=== PATIENT | male | born 1975 | race Caucasian/White ===

== ENCOUNTER 2018-11-15 23:40 | Inpatient (IN) | payer OTHER ==
[~2018-11-15] VITALS: Ht 167.6 cm; Wt 41.3 kg
[2018-11-15 23:45] VITALS: BP 95/64
--- NOTE | 2018-11-15 23:57 | NUR ---
BIBA TO ER BED 8 BLS
--- NOTE | 2018-11-16 00:02 | NUR ---
PT TO ED WITH C/O ABD PAIN AND DIARRHEA. PT REPORTS RECENT DIAGNOSIS OF CDIFF. PT BEING TREATED AT [place]. BOWEL SOUNDS HYPERACTIVE TO ALL QUADRANTS. PT IS IN NO OBVIOUS DISTRESS AT THIS TIME.
[2018-11-16] MEDS ORDERED: NACL 0.9% 1,000 ML IV SCH ×2 (00:24→02:09)
[2018-11-16 00:57] LABS: HEMATOCRIT 35.8 % (36-52); HEMOGLOBIN 11.3 g/dL (12.0-18.0); MEAN CORPUSCULAR HEMOGLOBIN 28 pg (27-31); MEAN CORPUSCULAR HGB CONC 32 g/dL (33-37); MEAN CORPUSCULAR VOLUME 89.8 fL (80-94); PLATELET COUNT (AUTO) 203 K/uL (140-450); RED BLOOD CELL COUNT(AUTO) 3.99 MIL/uL (4.20-6.10); RED CELL DISTRIBUTION WIDTH 15.6 % (11.6-13.7)
[2018-11-16 01:12] LABS: ALBUMIN 3.2 g/dL (3.4-5.0); ANION GAP 11.1 (8-16); CARBON DIOXIDE 28.8 mmol/L (21-32); CREATININE 0.2 mg/dL (0.7-1.3); POTASSIUM 3.9 mmol/L (3.5-5.1); TOTAL BILIRUBIN 0.6 mg/dL (0.0-1.0)
[2018-11-16 01:20] LABS: PROTHROMBIN TIME 11.6 secs (10.8-13.4)
[2018-11-16 01:33] LABS: LYMPHOCYTES % (MANUAL) 3 % (20-46); MONOCYTES % (MANUAL) 12 % (5-12); WHITE BLOOD COUNT (AUTO) 16.9 K/uL (4.8-10.8)
--- NOTE | 2018-11-16 01:51 | NUR ---
ASSISTED PT TO BEDPAN FOR STOOL COLLLECTION. UNABLE TO PROVIDE AT THIS TIME. WILL CONTINUE TO TRY. ALL QUESTIONS ANSWERED AT THIS TIME.
[2018-11-16] MEDS ORDERED: DOCUSATE SODIUM 100 MG GELCAP PO PRN (02:10)
[2018-11-16] MEDS ORDERED: metroNIDAZOLE 500 MG/NS PREMIX 100 ML IV ONE (02:10)
[2018-11-16] MEDS ORDERED: HYDROcodone/APAP 5/325 MG 1 TAB TAB PO PRN (02:10)
[2018-11-16] MEDS ORDERED: MORPHINE SULFATE 4 MG/ML SYR IVP ONE (02:10)
[2018-11-16] MEDS ORDERED: MORPHINE SULFATE 2 MG/ML SYR IVP PRN (02:10)
[2018-11-16] MEDS ORDERED: ACETAMINOPHEN 325 MG TAB PO PRN (02:10)
[2018-11-16 02:40] LABS: MAGNESIUM 1.9 mg/dL (1.8-2.4); PHOSPHORUS 3.4 mg/dL (2.5-4.9); THYROID STIMULATING HORMONE 1.67 uIU/mL (0.34-3.74)
[2018-11-16] MEDS ORDERED: LISI2.5T5 PO (02:41)
[2018-11-16] MEDS ORDERED: METO50TE2 PO (02:41)
[2018-11-16] MEDS ORDERED: AMIO200T5 PO (02:41)
[2018-11-16] MEDS ORDERED: APIX5TAB PO (02:41)
[2018-11-16] MEDS ORDERED: METO25TE2 PO (02:41)
--- NOTE | 2018-11-16 03:00 | NUR ---
PT ARRIVED TO UNIT VIA WHEELCHAIR WITH FAMILY/CAREGIVERS. REPORT GIVEN BY ER NURSE AASHISH-RN AT BEDSIDE. PT RESTING IN BED, UNABLE TO AMBULATE- USES POWER WHEELCHAIR AT HOME, AOX4, ON ROOM AIR WITH LEFT FA #20G RUNNING FLAGYL. DISCUSSED PLAN OF CARE AND PT VERBALIZED UNDERSTANDING. NO S/S OF RESPIRATORY DISTRESS OR DISCOMFORT NOTED AT THIS TIME. BED IN LOWEST POSITION, BED BREAKS ON, BOTH SIDE RAILS UP AND FALL PRECAUTIONS IN PLACE. WILL CONTINUE TO MONITOR.
--- NOTE | 2018-11-16 03:15 | NUR ---
Patient will be admitted to care of DR BROCK. Admited to [facility]. Will go to room 117. Belongings list completed. Report to ROSA SANDOVAL.
[2018-11-16] MEDS ORDERED: DEXT 5% / NACL 0.45% 1,000 ML IV SCH (03:50)
[2018-11-16 04:00] VITALS: BP 95/63
--- NOTE | 2018-11-16 04:00 | NUR ---
VITAL SIGNS TAKEN AND TOLERATED WELL. MRSA SWAB COLLECTED. NO S/S OF RESPIRATORY DISTRESS OR DISCOMFORT NOTED AT THIS TIME. WILL CONTINUE TO MONITOR.
--- NOTE | 2018-11-16 06:00 | NUR ---
PT RESTING IN BED. NO S/S OF RESPIRATORY DISTRESS OR DISCOMFORT NOTED AT THIS TIME. WILL CONTINUE TO MONITOR.
--- NOTE | 2018-11-16 07:34 | NUR ---
ENDORSED PT CARE TO DAY SHIFT NURSE ROSARIO FOR CONTINUITY OF CARE.
--- NOTE | 2018-11-16 07:36 | NUR ---
RECEIVED BEDSIDE REPORT FROM ENDOSCOPY NURSE NURSE. PT IS AOX4. DENIES PAIN. NO SIGN OF DISTRESS NOTED. RA. RESPIRATION IS EVEN AND UNLABORED. IV ON L FA 20G, ASYMPTOMATIC AND PATENT, INFUSING PER MD ORDER. IV SITE IS CLEAN AND DRY. SKIN INTACT, CLEAN AND DRY. PT IS UNABLE TO AMBULATE, BEDREST. DISCUSS PLAN OF CARE WITH PATIENT AND FAMILY, BOTH PT AND FAMILY VERBALIZED UNDERSTANDING. CONTACT PRECAUTION IN PLACE. FALL PRECAUTION IN PLACE. SIGNS POSTED. SAFETY MEASURES IN PLACE. BED IN LOW POSITION, CALL LIGHT WITHIN REACH.
[2018-11-16 08:00] VITALS: BP 95/64
--- NOTE | 2018-11-16 08:26 | NUR ---
PATIENT HAS BEEN SCREENED AND CATEGORIZED HIGH NUTRITION RISK. PATIENT WILL BE SEEN WITHIN 1-2 DAYS OF ADMISSION. 11/16/18-11/17/[address]
--- NOTE | 2018-11-16 08:50 | NUR ---
COLLECTED STOOL SPECIMEN AND DROPPED IT OFF TO LAB WITH C-DIFF FORM COMPLETED
[2018-11-16] MEDS: METOPROLOL SUCCINATE 50 MG TABER PO SCH (09:00)
[2018-11-16] MEDS: LISINOPRIL 5 MG TAB PO SCH (09:06)
[2018-11-16] MEDS: APIXABAN 2.5 MG TAB PO SCH ×2 (09:09→20:58)
[2018-11-16] MEDS: AMIODARONE 200 MG TAB PO SCH (09:13)
[2018-11-16] MEDS: NACL 0.9% 1,000 ML IV SCH ×2 (09:15→18:18)
--- NOTE | 2018-11-16 09:17 | NUR ---
ADMINISTERED MEDS PER MD ORDER. HELD BP MED METOPROLOL PER MD ORDER DUE TO B/P 95/64. PT TOLERATED WELL. NO SIGNS OF DISTRESS NOTED. SISTER IN LAW IS AT BEDSIDE.
--- NOTE | 2018-11-16 10:45 | NUR ---
PICKED UP A FOOD PLATE FROM [facility] AND DELIVERED TO PT'S ROOM.
[2018-11-16] MEDS: metroNIDAZOLE 500 MG/NS PREMIX 100 ML IV SCH ×3 (11:22→20:57)
[2018-11-16 12:00] VITALS: BP 105/73
[2018-11-16] MEDS ORDERED: VANCOMYCIN 500 MG VIAL PO SCH (12:00)
[2018-11-16] MEDS: PHARMACY COMMENTS MC SCH ×3 (12:00→23:15)
--- NOTE | 2018-11-16 12:18 | NUR ---
PT IS EATING LUNCH ON BED. [place] PAIN. NO SIGNS OF DISTRESS NOTED. FAMILY IS AT BEDSIDE. SAFETY MEASURES IN PLACE.
[2018-11-16] MEDS: VANCOMYCIN 500 MG VIAL PO SCH ×3 (14:16→23:14)
--- NOTE | 2018-11-16 15:20 | NUR ---
PT IS RESTING ON BED. DENIES PAIN. NO SIGN OF DISTRESS NOTED. SISTER IN LAW ROBINSON IS AT BEDSIDE.
[2018-11-16 16:00] VITALS: BP 99/71
--- NOTE | 2018-11-16 18:15 | NUR ---
NOTIFIED THAT PT IS HAVING HIS 12 EPISODES OF DIARRHEA FOR TODAY. PER , HE WILL ORDER LOMOTIL.
[2018-11-16] MEDS ORDERED: DIPHENOXYLATE /ATROPINE 2.5 MG TAB PO PRN (18:35)
--- NOTE | 2018-11-16 19:10 | NUR ---
GAVE BEDSIDE REPORT TO ENVIRONMENTAL REMEDIATION CONSULTANT NURSE FOR CONTINUITY OF CARE. PT IS IN STABLE CONDITION.
--- NOTE | 2018-11-16 19:11 | NUR ---
REPORT RECEIVED FROM AM NURSE AT BEDSIDE. PT IN STABLE CONDITION. AAOX4. INTRODUCED SELF TO PT. BOARD UPDATED. NO COMPLAINTS OF PAIN. NO SOB. SMALL GRADE FEVER OF 99.3. PT HAS PACEMAKER SET AT 70BPM. IV SITE L FA 20G RUNNING NS@120ML/HR PATENT AND INTACT. SKIN WARM, DRY, AND INTACT WITH NO OPEN WOUNDS. BED LOCKED IN LOW POSITION. CALL CORTÉS WITHIN REACH. SAFETY PRECAUTIONS IN PLACE. ALL NEEDS MET AT THIS TIME.
--- NOTE | 2018-11-16 19:39 | NUR ---
LOMOTIL GIVEN PO FOR DIARRHEA. PT TOLERATED WELL.
[2018-11-16 20:00] VITALS: BP 100/63
--- NOTE | 2018-11-16 20:57 | NUR ---
ELIQUIS GIVEN PO. FLAGYL HUNG AND RUNNING. PT TOLERATING WELL.
--- NOTE | 2018-11-16 23:14 | NUR ---
VANCO GIVEN PO. PT TOLERATED WELL.
[2018-11-17] VITALS: BP 131/80
[2018-11-17] MEDS: NACL 0.9% 1,000 ML IV SCH ×3 (00:35→22:40)
--- NOTE | 2018-11-17 01:30 | NUR ---
PT SLEEPING COMFORTABLY WITH FAMILY AT BEDSIDE. NO S/S OF DISTRESS NOTED. WILL CONTINUE TO MONITOR.
--- NOTE | 2018-11-17 03:00 | NUR ---
PT SLEEPING COMFORTABLY BUT AROUSABLE WITH FAMILY AT BEDSIDE. NO S/S OF DISTRESS NOTED. WILL CONTINUE TO MONITOR.
[2018-11-17 04:00] VITALS: BP 117/70
[2018-11-17] MEDS: metroNIDAZOLE 500 MG/NS PREMIX 100 ML IV SCH ×3 (05:23→21:11)
--- NOTE | 2018-11-17 05:23 | NUR ---
SAMMY BLANDON AND RUNNING. GELLER GIVEN PO. PT TOLERATED WELL.
[2018-11-17] MEDS: PHARMACY COMMENTS MC SCH ×3 (05:24→18:31)
[2018-11-17] MEDS: VANCOMYCIN 500 MG VIAL PO SCH ×3 (05:24→18:40)
[2018-11-17] MEDS: ONDANSETRON 4 MG/2 ML VIAL IM/IVP PRN (05:28)
--- NOTE | 2018-11-17 05:28 | NUR ---
PT HAS COMPLAINTS OF NAUSEA/VOMITING. ZOFRAN GIVEN IVP. PT TOLERATED WELL.
[2018-11-17 06:36] LABS: BASOPHILS % (AUTO) 0.4 % (0.0-2.0); EOSINOPHILS % (AUTO) 0.6 % (0.0-4.0); HEMATOCRIT 32.2 % (36-52); HEMOGLOBIN 10.2 g/dL (12.0-18.0); LYMPHOCYTES # (AUTO) 0.9 K/uL (2.0-11.5); LYMPHOCYTES % (AUTO) 13.9 % (20.5-51.1); MEAN CORPUSCULAR HEMOGLOBIN 29 pg (27-31); MEAN CORPUSCULAR HGB CONC 32 g/dL (33-37); MEAN CORPUSCULAR VOLUME 91.4 fL (80-94); MONOCYTES # (AUTO) 0.8 K/uL (0.8-1.0); MONOCYTES % (AUTO) 12.2 % (1.7-9.3); NEUTROPHILS # (AUTO) 4.8 K/uL (1.8-7.7); NEUTROPHILS % (AUTO) 72.9 % (42.2-75.2); PLATELET COUNT (AUTO) 167 K/uL (140-450); RED BLOOD CELL COUNT(AUTO) 3.53 MIL/uL (4.20-6.10); RED CELL DISTRIBUTION WIDTH 15.7 % (11.6-13.7); WHITE BLOOD COUNT (AUTO) 6.6 K/uL (4.8-10.8)
[2018-11-17 07:08] LABS: CARBON DIOXIDE 24.3 mmol/L (21-32); CREATININE 0.3 mg/dL (0.7-1.3); POTASSIUM 3.3 mmol/L (3.5-5.1)
[2018-11-17 07:15] LABS: MAGNESIUM 1.6 mg/dL (1.8-2.4); PHOSPHORUS 3.5 mg/dL (2.5-4.9)
--- NOTE | 2018-11-17 07:25 | NUR ---
REPORT GIVEN TO AM NURSE AT BEDSIDE. PT IN STABLE CONDITION.
--- NOTE | 2018-11-17 07:30 | NUR ---
RECEIVED PT FROM WASTE HAND NURSE, PT IS AWAKE WITH SISTER IN LAW ON THE BEDSIDE, SIDE RAILS ARE UP AND CALL LIGHT WITHIN REACH, FALL AND SAFETY PRECAUTION IN PLACE. PT HAS AN IV LINE ON THE LEFT FA G. 20 WITH NS AT 120 ML/HR INFUSING. PT DENIES PAIN AND NO SOB NOTED. WILL MONITOR PT.
[2018-11-17 08:00] VITALS: BP 114/77
[2018-11-17 08:43] LABS: T4 (THYROXINE) 9.2 ug/dL (4.5-12.0)
[2018-11-17] MEDS ORDERED: MAG SULF 2000 MG/WATER PREMIX 100 ML IV SCH (09:00)
[2018-11-17] MEDS: METOPROLOL SUCCINATE 50 MG TABER PO SCH (09:00)
[2018-11-17] MEDS ORDERED: POTASSIUM CHLORIDE 10 MEQ TABER PO SCH (09:00)
[2018-11-17] MEDS: LISINOPRIL 5 MG TAB PO SCH (09:04)
[2018-11-17] MEDS: AMIODARONE 200 MG TAB PO SCH (09:04)
--- NOTE | 2018-11-17 09:05 | NUR ---
PT IS AWAKE AND SEATED ON THE BED, VITAL SIGNS CHECKED PRIOR TO MEDICATION ADMINISTRATION, PT REFUSED TO TAKE THE METOPROLOL VERBALIZED THAT HE USED TO TAKE THE METOPROLOL AT NIGHT, DR. WADDELL MADE AWARE. NO SIGN OF DISTRESS NOTED AND WILL MONITOR PT.
[2018-11-17] MEDS: APIXABAN 2.5 MG TAB PO SCH ×2 (09:07→21:19)
--- NOTE | 2018-11-17 09:17 | NUR ---
PT IS SEATED UP ON THE BED, EATING HIS BREAKFAST,BEING ASSISTED BY SISTER IN LAW, EDMOND, MAGNESIUM IVPB AND POTASSIUM TABLETS WERE GIVEN AND PT TOLERATED IT, NO SIGN OF DISTRESS NOTED AND WILL MONITOR PT.
[2018-11-17 12:00] VITALS: BP 107/75
--- NOTE | 2018-11-17 12:39 | NUR ---
PT IS AWAKE AND MEDICATION WA GIVEN VIA IVPB. NO SIGN OF DISTRESS NOTED AND WILL MONITOR PT.
[2018-11-17] MEDS ORDERED: ALBUTEROL SULFATE/IPRATROPIU 3 ML SOL IH PRN (13:30)
--- NOTE | 2018-11-17 13:39 | NUR ---
11/17/18 RD INITIAL ASSESSMENT COMPLETED PLEASE REFER TO NUTRITION ASSESSMENT UNDER CARE ACTIVITY FOR ESTIMATED NUTRITIONAL NEEDS. 1. CONTINUE BRAT DIET TOLERATED 2. IF/WHEN PATIENT BECOMES MEDICALLY STABLE CONSIDER ADVANCED TO REGULAR DIET 3. RD TO FOLLOW-UP 3-5 DAYS, MODERATE RISK SAMANTHA MARTE, RD
--- NOTE | 2018-11-17 15:10 | NUR ---
9494 MET WITH PATIENTS BROTHTYRELL DIEZ AND HE VOICED HIS CONCERNS REGARDING SOME NURSING CARE ISSUES AND HAS REQUESTED THAT PATIENT BE TRANSFERRED TO [facility]. I ATTEMPTED TO EXPLAIN TO HIM THAT [facility] WILL NOT ACCEPT PATIENTS FOR FAMILY REQUEST AND IS ONLY FOR HIGHER LEVEL OF CARE. BROTHER INSISTED THAT [facility] BE CONTACTED FOR TRANSFER AND THAT THEY BE INFORMED THAT ITS BECAUSE PATIENT IN HIS OPINION IS NOT RECEIVING GOOD CARE. I OFFERED TO HAVE HIM SPEAK TO NURSING ADMINISTRATION AND HE BECAME ANGRY AND ACCUSING THIS STORYBOARD ARTIST OF NOT WANTING TO ADVOCATE FOR PATIENT. I INFORMED HIM THAT THE TRANSFER UNIT WILL BE CONTACTED AND ASKED IF HE HAD A BACK UP PLAN IF PATIENT IS NOT ACCEPTED TO [place] AND HE AGAIN BECAME AGITATED AND ACCUSATORY. I DID EXPLAIN TO HIM THAT IT WAS AN [employer] VIOLATION TO TRANSFER A PATIENT WITHOUT THE OTHER FACILITIES ACCEPTANCE PATIENT HAD SAID HE WOULD CALL AN AMBULANCE AND HAVE PATIENT TRANSFERRED.
[2018-11-17 16:00] VITALS: BP 106/72
[2018-11-17] MEDS ORDERED: SIMETHICONE 40 MG/0.6 ML PO PRN (17:30)
--- NOTE | 2018-11-17 17:33 | NUR ---
I CALLED [facility] AND SPOKE TO LESLIE . SHE SAID IT NEEDS TO RE-FAX AGAIN TO .
[2018-11-17] MEDS ORDERED: SIMETHICONE 80 MG TAB.CHEW PO PRN (18:00)
--- NOTE | 2018-11-17 18:51 | NUR ---
WALESKA FROM [facility] CALLED AND ASKING DR BROCK NUMBER JUST IN CASE THEY HAVE QUESTION. SHE SAID THEY WILL REVIEW THE CASE AND SHE WILL CALL US BACK. NOTIFIED DR. BROCK AND DR. AMADOR AND MADE AWARE.
--- NOTE | 2018-11-17 19:15 | NUR ---
OPTIFOAM DRESSING WAS APPLIED TO THE SACROCOCCYGEAL AREA OF THE PT FOR BARRIER.
--- NOTE | 2018-11-17 19:20 | NUR ---
ENDORSED PT TO INTELLIGENCE OPERATIONS SPECIALIST NURSEJAIME FOR CONTINUITY OF CARE, PT IS STABLE AT THIS TIME WITH BROTHER ON THE BED SIDE.
--- NOTE | 2018-11-17 19:21 | NUR ---
RECEIVED REPORT FROM DAY SHIFT NURSE CHRISTOPHER-RN AT BEDSIDE. PT RESTING IN BED WITH FAMILY AT BEDSIDE, UNABLE TO AMBULATE- USES POWER WHEELCHAIR AT HOME, AOX4, ON ROOM AIR WITH LEFT FA #20G. DISCUSSED PLAN OF CARE AND PT VERBALIZED UNDERSTANDING. NO S/S OF RESPIRATORY DISTRESS OR DISCOMFORT NOTED AT THIS TIME. BED IN LOWEST POSITION, BED BREAKS ON, BOTH SIDE RAILS UP, BOTH CONTACT AND FALL PRECAUTIONS ARE IN PLACE. WILL CONTINUE TO MONITOR.
[2018-11-17 20:00] VITALS: BP 92/53
--- NOTE | 2018-11-17 20:00 | NUR ---
VITAL SIGNS TAKEN AND TOLERATED WELL. PT STATED HE TAKES TOPROL XL 75MG AT NIGHT AND WOULD LIKE THAT MEDICATION TO BE GIVEN AT 2100 INSTEAD OF THE AM. SPOKE WITH DR. CHEATHAM AND SAID SHE WOULD CHANGE THE TIME OF DOSAGE. PT ALSO C/O ARMS SWELLING DUE TO IVF- SPOKE WITH DR. CHEATHAM AND SHE CHANGED THE ORDER TO BE RUNING AT 10ML/HR. NO S/S OF RESPIRATORY DISTRESS OR DISCOMFORT NOTED AT THIS TIME. WILL CONTINUE TO MONITOR.
[2018-11-17] MEDS ORDERED: METOPROLOL SUCCINATE 50 MG TABER PO SCH (21:00)
--- NOTE | 2018-11-17 21:19 | NUR ---
SCHEDULED MEDICATIONS GIVEN AND TOLERATED WELL. NO S/S OF RESPIRATORY DISTRESS OR DISCOMFORT NOTED AT THIS TIME. WILL CONTINUE TO MONITOR.
--- NOTE | 2018-11-17 22:00 | NUR ---
PT RESTING IN BED. NO S/S OF RESPIRATORY DISTRESS OR DISCOMFORT NOTED AT THIS TIME. WILL CONTINUE TO MONITOR.
[2018-11-18] VITALS: BP 109/72
[2018-11-18] MEDS: VANCOMYCIN 500 MG VIAL PO SCH ×4 (00:06→17:40)
--- NOTE | 2018-11-18 00:06 | NUR ---
VITAL SIGNS TAKEN AND TOLERATED WELL. SCHEDULED MEDICATION GIVEN AND TOLERATED WELL. PT C/O ABD DISTENTION, SOB AND APNEA WITH CPAP MACHINE CAUSING HIM UNABLE TO SLEEP. PT DENIES PAIN. ABD FLAT AND HARD, 02SAT 99%. SPOKE WITH DR. CHEATHAM AND SHE CAME TO TALK TO PT. DR TO ORDER CXR TO R/O FLUID OVERLOAD VS. PNA. NO S/S OF RESPIRATORY DISTRESS OR DISCOMFORT AT THIS TIME. WILL CONTINUE TO MONITOR.
[2018-11-18] MEDS: PHARMACY COMMENTS MC SCH ×4 (00:07→17:41)
--- NOTE | 2018-11-18 02:00 | NUR ---
PT RESTING IN BED. NO S/S OF RESPIRATORY DISTRESS OR DISCOMFORT NOTED AT THIS TIME. WILL CONTINUE TO MONITOR.
[2018-11-18 04:00] VITALS: BP 118/78
--- NOTE | 2018-11-18 04:00 | NUR ---
VITAL SIGNS TAKEN AND TOLERATED WELL. NO S/S OF RESPIRATORY DISTRESS OR DISCOMFORT NOTED AT THIS TIME. WILL CONTINUE TO MONITOR.
[2018-11-18] MEDS: metroNIDAZOLE 500 MG/NS PREMIX 100 ML IV SCH ×2 (05:09→12:58)
--- NOTE | 2018-11-18 05:09 | NUR ---
SCHEDULED MEDICATION GIVEN. PT TOLERATED WELL. PT C/O INSOMNIA REQUESTING SLEEPING AID. SPOKE WITH DR. CHEATHAM FOR NEW ORDERS. NO S/S OF RESPIRATORY DISTRESS OR DISCOMFORT NOTED AT THIS TIME. WILL CONTINUE TO MONITOR.
--- NOTE | 2018-11-18 06:00 | NUR ---
SCHEDULED MEDICATION GIVEN AND TOLERATED WELL. NO S/S OF RESPIRATORY DISTRESS OR DISCOMFORT NOTED AT THIS TIME. WILL CONTINUE TO MONITOR.
[2018-11-18 06:16] LABS: BASOPHILS % (AUTO) 0.4 % (0.0-2.0); EOSINOPHILS % (AUTO) 0.3 % (0.0-4.0); HEMATOCRIT 31.5 % (36-52); HEMOGLOBIN 10.1 g/dL (12.0-18.0); LYMPHOCYTES % (AUTO) 12.4 % (20.5-51.1); MEAN CORPUSCULAR HEMOGLOBIN 29 pg (27-31); MEAN CORPUSCULAR HGB CONC 32 g/dL (33-37); MEAN CORPUSCULAR VOLUME 90.2 fL (80-94); MONOCYTES # (AUTO) 0.8 K/uL (0.8-1.0); MONOCYTES % (AUTO) 10.5 % (1.7-9.3); NEUTROPHILS % (AUTO) 76.4 % (42.2-75.2); PLATELET COUNT (AUTO) 182 K/uL (140-450); RED BLOOD CELL COUNT(AUTO) 3.49 MIL/uL (4.20-6.10); RED CELL DISTRIBUTION WIDTH 15.8 % (11.6-13.7); WHITE BLOOD COUNT (AUTO) 7.8 K/uL (4.8-10.8)
[2018-11-18 06:53] LABS: ANION GAP 10.5 (8-16); CARBON DIOXIDE 24.6 mmol/L (21-32); CREATININE 0.3 mg/dL (0.7-1.3); POTASSIUM 4.1 mmol/L (3.5-5.1)
[2018-11-18] MEDS ORDERED: MELATONIN 3 MG TAB PO PRN (06:55)
[2018-11-18 06:58] LABS: MAGNESIUM 1.9 mg/dL (1.8-2.4); PHOSPHORUS 3.1 mg/dL (2.5-4.9)
--- NOTE | 2018-11-18 07:15 | NUR ---
RECEIVED PT REPORT FROM SPECIAL EDUCATION EDUCATIONAL ASSISTANT NURSE. PT IS AWAKE IN BED, COVERED BY MANY BLANKETS DUE TO FEELING COLD. PT IS THIN, AND IS BEDBOUND. BROTHER AT BEDSIDE. PT IS ON ROOM AIR, SKIN IS INTACT. PT ON CONTACT ISOLATION FOR C.DIFF. IV SITE NOTED ON THE LFA, 20 G, INFUSING NS 10 ML/HR. FALL PRECAUTIONS IN PLACE. CALL LIGHT WITHIN REACH. WILL CONTINUE TO MONITOR.
--- NOTE | 2018-11-18 07:34 | NUR ---
REPORT GIVEN TO DAY SHIFT NURSE EDMOND FRY FOR CONTINUITY OF CARE.
[2018-11-18 08:00] VITALS: BP 102/67
[2018-11-18] MEDS: ONDANSETRON 4 MG/2 ML VIAL IM/IVP PRN (08:41)
[2018-11-18] MEDS: AMIODARONE 200 MG TAB PO SCH (09:19)
[2018-11-18] MEDS: APIXABAN 2.5 MG TAB PO SCH (09:20)
[2018-11-18] MEDS: LISINOPRIL 5 MG TAB PO SCH (09:21)
[2018-11-18] MEDS ORDERED: VAN500I PO (10:05)
[2018-11-18] MEDS ORDERED: MELA3TAB PO (10:05)
[2018-11-18] MEDS ORDERED: SIME80CT27 PO (10:05)
[2018-11-18] MEDS ORDERED: RAME8TAB16 PO (10:30)
--- NOTE | 2018-11-18 10:30 | NUR ---
RECHECKED PT'S TEMPERATURE, 99.6 AT THIS TIME (TEMPORAL ARTERY). Addendum: 11/18/18 at 1042 by Candie Dickinson RN CHARTED ON WRONG PT
--- NOTE | 2018-11-18 10:37 | NUR ---
RECEIVED CALL FROM LAB, PT IS POSITIVE FOR FLU A, NEGATIVE FOR FLU B. DROPLET ISOLATION IN PLACE. IS AWARE. MD ALSO AWARE OF PT'S FEVER OF 101 THIS AM. Addendum: 11/18/18 at 1042 by Candie Dickinson RN CHARTED ON WRONG PT
[2018-11-18 12:00] VITALS: BP 111/77
--- NOTE | 2018-11-18 13:02 | NUR ---
PT SEEN BY DR ROWELL
[2018-11-18] MEDS ORDERED: LACT1.4C PO (13:40)
--- NOTE | 2018-11-18 18:04 | NUR ---
PT HAS DISCHARGED. PT AND FAMILY WERE GIVEN DC INSTRUCTIONS TO WHICH THEY VERBALIZED UNDERSTANDING. PT VERBALIZED UNDERSTANDING OF THE PRESCRIPTIONS. IV SITE AND WRIST BANDS WERE REMOVED. PT IS UP TO DATE ON FLU VACCINE. PT LEFT WITH ALL HIS BELONGINGS IN STABLE CONDITION, WITH FAMILY.
--- NOTE | 2018-11-19 13:38 | NUR ---
WOUND CARE CONSULT NOT DONE, PT. DISCHARGED
== END 2018-11-18 18:00 | disposition home or self-care (01) | DRG 372 ==
LOC: MED 23:40 → MTU 11-16 02:09
PROVIDERS: ADMIT General Practice; ATTEND General Practice
DX: A04.72 Enterocolitis due to Clostridium difficile, not specified as recurrent (principal); E87.1 Hypo-osmolality and hyponatremia; E44.0 Moderate protein-calorie malnutrition; Z68.1 Body mass index [BMI] 19.9 or less, adult; R64 Cachexia; I48.91 Unspecified atrial fibrillation; E87.6 Hypokalemia; E83.42 Hypomagnesemia; G71.00 Muscular dystrophy, unspecified; I11.0 Hypertensive heart disease with heart failure; I50.9 Heart failure, unspecified; D64.9 Anemia, unspecified; K92.9 Disease of digestive system, unspecified; M25.451 Effusion, right hip; M71.551 Other bursitis, not elsewhere classified, right hip; Z88.0 Allergy status to penicillin; Z95.0 Presence of cardiac pacemaker; Z79.01 Long term (current) use of anticoagulants; Z79.899 Other long term (current) drug therapy; Z91.011 Allergy to milk products
CPT/HCPCS: 36415; 71045; 73502; 74022; 80048; 80053; 82150; 83036; 83605; 83690; 83735; 83880; 84100; 84436; 84443; 84484; 85025; 85610; 85730; 87040; 87070; 87081; 93005; 96361; 96365; 96375; 99285; J2270; J2405; J3370; J3475; J3490; J7030; Q0092

== ENCOUNTER 2019-04-04 21:42 | Emergency (ER) | payer OTHER ==
[~2019-04-04] VITALS: Ht 167.6 cm; Wt 40.8 kg
[~2019-04-04 21:42] MED LIST: AMIO200T5 PO; APIX5TAB PO; LACT1.4C PO; LISI2.5T5 PO; METO25TE2 PO; RAME8TAB16 PO; SIME80CT27 PO; VAN500I PO
--- NOTE | 2019-04-04 21:44 | NUR ---
PT BIBA TO BED 12.
[2019-04-04 21:48] VITALS: BP 113/73
--- NOTE | 2019-04-04 21:48 | NUR ---
P/T BIB BY [facility] FOR NAUSEA AND DIARRHEA SINCE THIS MORNING. PT STATES "I WENT LIKE 15 TIMES TODAY." PT HAS HX OF C. DIFF FROM 3 MONTHS AGO. PT DENIES PAIN, "JUST FEELS UNCOMFORTABLE." MED HX: MS, STROKES, HEART FAILURE, AND PACEMAKER. VSS, NO FEVER. SAFETY MEASURES IN PLACE. WAITING FOR ERMD TO EVALUATE PT.
[2019-04-04] MEDS ORDERED: ONDANSETRON 4 MG/2 ML VIAL IVP ONE (22:00)
[2019-04-04] MEDS ORDERED: NACL 0.9% 1,000 ML IV ONE (22:00)
--- NOTE | 2019-04-04 22:15 | NUR ---
PT USING BEDSIDE COMMODE
[2019-04-04 22:25] LABS: BASOPHILS % (AUTO) 0.4 % (0.0-2.0); EOSINOPHILS # (AUTO) 0.1 K/uL (0-0.4); EOSINOPHILS % (AUTO) 1.2 % (0.0-4.0); HEMATOCRIT 39.1 % (36-52); HEMOGLOBIN 12.6 g/dL (12.0-18.0); LYMPHOCYTES # (AUTO) 1.4 K/uL (2.0-11.5); LYMPHOCYTES % (AUTO) 16.4 % (20.5-51.1); MEAN CORPUSCULAR HEMOGLOBIN 28 pg (27-31); MEAN CORPUSCULAR HGB CONC 32 g/dL (33-37); MEAN CORPUSCULAR VOLUME 88.2 fL (80-94); MONOCYTES # (AUTO) 0.6 K/uL (0.8-1.0); MONOCYTES % (AUTO) 7.2 % (1.7-9.3); NEUTROPHILS # (AUTO) 6.5 K/uL (1.8-7.7); NEUTROPHILS % (AUTO) 74.8 % (42.2-75.2); PLATELET COUNT (AUTO) 235 K/uL (140-450); RED BLOOD CELL COUNT(AUTO) 4.43 MIL/uL (4.20-6.10); RED CELL DISTRIBUTION WIDTH 15.9 % (11.6-13.7); WHITE BLOOD COUNT (AUTO) 8.7 K/uL (4.8-10.8)
[2019-04-04 22:32] LABS: ANION GAP 9.4 (8-16); CARBON DIOXIDE 28.6 mmol/L (21-32); CREATININE 0.3 mg/dL (0.7-1.3)
[2019-04-04 22:38] LABS: ALBUMIN 3.6 g/dL (3.4-5.0); TOTAL BILIRUBIN 0.4 mg/dL (0.0-1.0)
--- NOTE | 2019-04-04 22:48 | NUR ---
XRAY AT BEDSIDE. PT STILL USING BEDSIDE COMMODE.
--- NOTE | 2019-04-04 23:00 | NUR ---
PT UNABLE TO PROVIDE ENOUGH STOOL. ERMD NOTIFIED
[2019-04-04] MEDS ORDERED: traMADol 50 MG TAB PO ONE (23:50)
--- NOTE | 2019-04-05 | NUR ---
PT HAS CPAP IN PLACE BIB FAMILY
[2019-04-05 00:40] VITALS: BP 118/80
--- NOTE | 2019-04-05 00:40 | NUR ---
DISCHARGE PAPERS GIVEN TO PT AND HIS SISTER. RX OF ZOFRAN GIVEN. SIDE EFFECTS EXPLAINED. NO C/O NAUSEA/VOMITING OR PAIN. INSTRUCTED TO F/U WITH PCP AND WHEN TO RETURN TO ER. BRAT DIET AND PO FLUIDS EXPLAINED. PT VERBALLIZED UNDERSTANDING OF DC INSTRUCTIONS. PT WHEEL CHAIR ASSISTED OUT OF ED. ALL QUESTIONS ANSWERED.
== END 2019-04-05 00:40 | disposition home or self-care (01) ==
LOC: MED 21:42
DX: K52.9 Noninfective gastroenteritis and colitis, unspecified (principal); G35 Multiple sclerosis; G71.00 Muscular dystrophy, unspecified; Z95.0 Presence of cardiac pacemaker; Z86.79 Personal history of other diseases of the circulatory system; Z86.73 Personal history of transient ischemic attack (TIA), and cerebral infarction without residual deficits; Z88.0 Allergy status to penicillin; Z88.8 Allergy status to other drugs, medicaments and biological substances; Z79.2 Long term (current) use of antibiotics; Z79.899 Other long term (current) drug therapy
CPT/HCPCS: 36415; 71045; 74018; 80053; 83690; 85025; 87040; 96361; 96374; 99284; J2405; J7030; Q0092